=== PATIENT | male | born 2000 | race Caucasian/White ===

== ENCOUNTER 2018-05-26 17:08 | Emergency (ER) | payer OTHER ==
[~2018-05-26] VITALS: Ht 157.5 cm; Wt 45.4 kg
== END 2018-05-26 21:28 | disposition home or self-care (01) ==
LOC: ER 17:08
DX: B34.9 Viral infection, unspecified (principal)

== ENCOUNTER → 2022-12-10 | Emergency (ER) | payer OTHER ==
[~2022-12-10] VITALS: Ht 157.5 cm; Wt 47.6 kg
[~2022-12-10] MED LIST: CARAFATE1 GM PO; LEVSIN/SL0.125 MG SL; PEPCID AC20 MG PO
== END | disposition home or self-care (01) ==
LOC: ER 21:23
DX: K29.70 Gastritis, unspecified, without bleeding (principal)